=== PATIENT | female | born 1955 | race Caucasian/White ===

== ENCOUNTER 2018-07-23 12:18 | Day surgery (SDC) | payer BC ==
[~2018-07-23] VITALS: Ht 160 cm; Wt 137.0 kg
[~2018-07-23 12:18] MED LIST: CBD OIL TOP; DEXILANT60 MG PO; DICL75ER PO; DULO60; FAMO40 PO; GABA600; IBUP800; LISHYD1012; MELO7.5; META800 PO; PANT40; PREG75 PO; ROSU10TA PO; TRILYTE; ZESTORETIC 20-1 EACH PO; [UNRECOGNIZED DRUG - OTHER]
--- NOTE | 2018-07-23 12:39 | NUR ---
Ambulatory in Day SurgeryPatient states colon prep results clear. History, Chart, Medications and Allergies reviewed before start of procedure.Lungs clear T/O to Auscultation. Patient confirms NPO status and agrees with scheduled surgery. Pre-Op teaching done. Pt verbalizes understanding.
--- NOTE | 2018-07-23 14:11 | NUR ---
07/23/18 1411 Juanpablo Gasca 3-LEAD EKG REVIEWED WITH PHYSICIAN PRIOR TO START OF PROCEDURE.Patient to ENDO 1History, Chart, Medications and Allergies reviewed before start of procedure.MONITOR INTACT WITH CONTINUOUS PULSE OXIMETRY AND INTERMITTENT BP.O2 VIA N/C INTACT THROUGHOUT SEDATION/PROCEDURE. See Anesthesia record
[2018-07-23] MEDS ORDERED: DULO30 PO (14:20)
== END 2018-07-23 22:40 | disposition home or self-care (01) ==
LOC: ORSCMMR 12:18 → ORD 14:00 → ORSCMMR 22:40
PROVIDERS: Internal Medicine Gastroenterology
PROC: 0DBM8ZX Excision of Descending Colon, Via Natural or Artificial Opening Endoscopic, Diagnostic (ICD-10-PCS; principal; 2018-07-23 14:00)
PROC: 0DBP8ZX Excision of Rectum, Via Natural or Artificial Opening Endoscopic, Diagnostic (ICD-10-PCS; principal; 2018-07-23 14:00)
DX: Z80.0 Family history of malignant neoplasm of digestive organs (principal); D12.4 Benign neoplasm of descending colon; K62.1 Rectal polyp; K57.30 Diverticulosis of large intestine without perforation or abscess without bleeding; I10 Essential (primary) hypertension; G47.33 Obstructive sleep apnea (adult) (pediatric); K21.9 Gastro-esophageal reflux disease without esophagitis; E66.01 Morbid (severe) obesity due to excess calories; Z68.43 Body mass index [BMI] 50.0-59.9, adult
CPT/HCPCS: 88305; J2405; J7120

== ENCOUNTER 2023-06-27 17:44 | Inpatient (IN) | payer MEDICARE, OTHER ==
[~2023-06-27] VITALS: Ht 160 cm; Wt 131.9 kg
[~2023-06-27 17:44] MED LIST changes: +DULO30 PO
[2023-06-27 18:22] LABS: Hematocrit 30.3 % (33.0-51.0); Hemoglobin 10.1 g/dL (11.5-16.0); Mean Corpuscular HGB 29.2 pg (26.0-34.0); Mean Corpuscular HGB Conc 33.3 g/dL (31.5-36.5); Mean Corpuscular Volume 88 fL (80-100); Mean Platelet Volume 10.6 fL (9.1-12.4); Platelet Count 174 K/mm3 (150-400); RDW Coefficient Variation 17.6 % (11.7-14.2); Red Blood Cell Count 3.46 M/mm3 (3.80-5.20); White Blood Cell Count 35.87 K/mm3 (4.00-11.30)
[2023-06-27 18:45] LABS: BAND PERCENT MAN 23 % (0-8); BASOPHILS PERCENT MAN 0 % (0-2); EOSINOPHILS ABSOLUTE MAN 0.35 K/mm3 (0.00-0.68); EOSINOPHILS PERCENT MAN 1 % (0-6); LYMPHOCYTES ABSOLUTE MAN 0.35 K/mm3 (0.84-5.20); LYMPHOCYTES PERCENT MAN 1 % (21-46); MONOCYTES ABSOLUTE MAN 0.71 K/mm3 (0.16-1.47); MONOCYTES PERCENT MAN 2 % (4-13); NEUTROPHILS ABSOLUTE MAN 34.43 K/mm3 (1.96-9.15); SEG NEUTROPHILS PERCENT MAN 73 % (41-73); TOTAL CELLS COUNTED 100
[2023-06-27 18:46] LABS: Albumin, Blood 1.8 g/dL (3.4-5.0); Albumin/Globulin Ratio 0.4 (0.8-1.8); Bilirubin, Total 1.8 mg/dL (0.1-1.0); Bun/Creatinine Ratio 16.6 (12.0-20.0); Calcium, Blood 8.7 mg/dL (8.5-10.1); Creatinine, Blood 3.01 mg/dL (0.40-1.00); Globulin, Blood 4.3 g/dL (2.2-4.0); Potassium, Blood 3.4 mmol/L (3.5-5.5); Total Protein, Blood 6.1 g/dL (6.4-8.2)
[2023-06-27 19:37] LABS: Influenza A, PCR NEGATIVE (NEGATIVE); Influenza B, PCR NEGATIVE (NEGATIVE); Resp Syncytial Virus, PCR NEGATIVE (NEGATIVE); SARS-Cov-2 (COVID-19) PCR, MMC NEGATIVE (NEGATIVE)
[2023-06-27 20:39] LABS: Source, Urine Foley catheter
[2023-06-27 20:45] LABS: Appearance, Urine Cloudy (Clear); Blood, Urine 1+ (Neg); Color, Urine Amber (P-Yellow); Glucose Qualitative, Urine Neg (Neg); Ketones, Urine 1+ (Neg); Leukocyte Esterase, Urine 1+ (Neg); Nitrite, Urine Pos (Neg); Protein, Urine 2+ (Neg); Specific Gravity, Urine 1.025 (1.003-1.022); Urobilinogen, Urine 2+ (Normal)
[2023-06-27 20:51] LABS: Bilirubin, Urine 2+ (Neg)
[2023-06-27 20:53] LABS: Amorphous Mod (0-Heavy); Bacteria Mod /hpf; Squamous Epithelial Cells Not Seen /hpf (Few)
[2023-06-27 20:57] LABS: International Normalized Ratio 1.23; Prothrombin Time Results 12.8 Sec (9.7-11.5)
[2023-06-28] VITALS (95 sets, daily range): BP systolic 60–137; BP diastolic 29–101
[2023-06-28 03:53] LABS: Hematocrit 32.8 % (33.0-51.0); Hemoglobin 10.6 g/dL (11.5-16.0); Mean Corpuscular HGB 29.3 pg (26.0-34.0); Mean Corpuscular HGB Conc 32.3 g/dL (31.5-36.5); Mean Corpuscular Volume 91 fL (80-100); Mean Platelet Volume 10.6 fL (9.1-12.4); Platelet Count 142 K/mm3 (150-400); RDW Coefficient Variation 18.3 % (11.7-14.2); RDW Standard Deviation 60.7 fL (35.1-46.3); Red Blood Cell Count 3.62 M/mm3 (3.80-5.20); White Blood Cell Count 27.16 K/mm3 (4.00-11.30)
[2023-06-28 04:12] LABS: Albumin, Blood 2.2 g/dL (3.4-5.0); Albumin/Globulin Ratio 0.5 (0.8-1.8); Bilirubin, Total 2.1 mg/dL (0.1-1.0); Bun/Creatinine Ratio 19.6 (12.0-20.0); Calcium, Blood 8.8 mg/dL (8.5-10.1); Creatinine, Blood 2.55 mg/dL (0.40-1.00); Globulin, Blood 4.1 g/dL (2.2-4.0); Potassium, Blood 3.6 mmol/L (3.5-5.5); Total Protein, Blood 6.3 g/dL (6.4-8.2)
[2023-06-28 04:36] LABS: BAND PERCENT MAN 19 % (0-8); BASOPHILS PERCENT MAN 0 % (0-2); EOSINOPHILS ABSOLUTE MAN 0.27 K/mm3 (0.00-0.68); EOSINOPHILS PERCENT MAN 1 % (0-6); LYMPHOCYTES ABSOLUTE MAN 0.54 K/mm3 (0.84-5.20); LYMPHOCYTES PERCENT MAN 2 % (21-46); MONOCYTES ABSOLUTE MAN 0.27 K/mm3 (0.16-1.47); MONOCYTES PERCENT MAN 1 % (4-13); NEUTROPHILS ABSOLUTE MAN 26.07 K/mm3 (1.96-9.15); SEG NEUTROPHILS PERCENT MAN 77 % (41-73); TOTAL CELLS COUNTED 100
--- NOTE | 2023-06-28 06:17 | NUR ---
ARRIVAL TO ICU/SHIFT SUMMARY PT ARRIVED TO ICU 14 VIA ED GURNEY AND ED RN. PT A/O X 3. FORGETFUL AT TIMES AND WILL PULL AT LINES/CORDS. WILL MAKE ODD STATEMENTS "I NEED TO GO TO WORK" AND "THE CAKE IS BAKING". VSS. BP SOFT AND HR 110-120'S. ST WITH PAC'S. ON 4L VIA NC WITH SPO2 GREATER THEN 90%. PT SOB AT REST AND ESPECIALLY WHEN TALKING OR DRINKING WATER. NEEDS REMINDERS TO TAKE SMALL SIPS AND TUCK CHIN WHEN SWALLOWING. PT C/O BACK PAIN. PROVIDER CHEYENNE CALLED APPROX 2300 AND ORDER RECEIVED FOR TRAMADOL VS PT HOME MEDICATION D/T KIDNEY FUNCTION. ALSO TALKED TO PROVIDER REGARDING SOB, EDEMA, BNP AND CONCERN FOR FLUID OVERLOAD. NO NEW ORDERS. PT STATES TRAMADOL DOES NOT WORK FOR HER. CALLED AND NOTIFIED PROVIDER OF THIS. ORDER FOR PERCOCET. PROVIDER NOTIFIED OF PT ALLERGIES. PROVIDER STATED THAT IT IS OKAY AND TO ORDER IT. PT DECLINED TO TAKE IT AT THAT TIME, BUT PT DID REQUEST TO TAKE IT THIS AM. PT SLIGHTLY MORE FORGETFUL AFTER TAKING IT, BUT STILL A/O X 3. [facility] CALLED THIS AM D/T PT STILL BEING SOB, INCREASING HR, BNP, AND FLUIDS. ORDER TO D/C LR AND GIVE LASIX. VALLES PATENT AND DRAINING TO GRAVITY. WILL REPORT OFF TO ONCOMING RN.
--- NOTE | 2023-06-28 08:10 | NUR ---
INITIAL ASSESSMENT PATIENT RESTING IN BED UPON ENTERING ROOM. PATIENT RESPONDS TO VERBAL STIMULI. PATIENT ORIENTED TO SELF, TOWN AND HOSPITAL. PATIENT DISORIENTED TO YEAR AND MONTH. PATIENT LETHARGIC. PATIENT CALM, COOPERATIVE. WITHDRAWN. PATIENT SLOW TO RESPOND. BLOOD SUGAR [address] VARNER CALLED. PATIENT UNABLE TO UNDERSTAND HOW TO SIP FROM A STRAW. 12.5 G OF D50 GIVEN. PATIENT WEAK BUT ABLE TO MOVE ALL EXTREMITIES. PATIENT AFEBRILE. PATIENT HAS NO COMPLAINTS OF PAIN AT THIS TIME. PATIENT SATTING 90% AND GREATER ON 4 L NC. LUNGS CLEAR IN UPPER LOBES AND DIMINISHED IN LOWER LOBES. PATIENT APPEARS SOB WITH AND WITHOUT EXERTION. PATIENT ST WITH PACS, HR IN THE 120S. SBP 90S TO LOW 100S. 1+ EDEMA NOTED TO BUES. 2+ EDEMA NOTED TO LLE. 3+ EDEMA NOTED TO RLE. ABD MILDLY DISTENDED WITH HYPOACTIVE BOWEL SOUNDS NOTED. DATE OF LAST BM UNKNOWN. PATIENT NPO AT THIS TIME BECAUSE OF ASPIRATION RISK. VALLES DRAINING YELLOW COLORED URINE WITH SEDIMENT NOTED. R LEG REDDENED AND WARM. BED LOW, CALL LIGHT IN REACH. CARE CONTINUES.
--- NOTE | 2023-06-28 09:32 | NUR ---
DR. JARQUIN CALLED AND INFORMED THAT DR. VARNER CALLED THIS AM WHEN BLOOD SUGAR 54. INFORMED THAT PATIENT RECEIVED 12.5 MG OF D50. INFORMED THAT BLOOD SUGAR DECREASED FROM 79 TO 73. ORDERED FOR D5 TO START.
--- NOTE | 2023-06-28 09:50 | NUR ---
TOOK PATIENT'S TWO RINGS HOME THAT WERE ON HER FINGERS.
--- NOTE | 2023-06-28 11:00 | NUR ---
DR. JARQUIN HERE TO SEE PATIENT. INFORMED THAT PATIENT HAS POSITIVE BLOOD CULTURES OF GRAM + COCCI IN CHAINS. INFORMED THAT BPS SOFT. INFORMED THAT PATIENT APPEARS SOB WITH AND WITHOUT EXERTION. INFORMED THAT GENETIC PHYSICIAN STOPPED LR AT 125 AND GAVE 40 MG LASIX TO TRY AND HELP WITH BREATHING. INFORMED THAT PATIENT MINIMALLY RESPONSIVE TO VERBAL STIMULI. INFORMED THAT D5 HAD BEEN STARTED AT 50 MLS/ HOUR. INFORMED REPORT THAT PATIENT TAKES PAIN AND SPASM MEDICATIONS AT HOME FOR BACK BUT BECAUSE OF DAE PERCOCET WAS ORDERED AND ADMINISTERED AROUND 0400. RECEIVED REPORT THAT PATIENT "FEELS LOOPY" WHEN GETS CODEINE OR HYDROCODONE.
--- NOTE | 2023-06-28 12:00 | NUR ---
PATIENT AFEBRILE. PATIENT MENTATION DECREASED FROM THIS AM. PATIENT RESPONSIVE TO PAINFUL STIMULI BY MOVING EXTREMITIES AND BRIEFLY OPENING EYES. DR. JARQUIN AWARE. PATIENT TRIES TO ANSWER QUESTIONS BUT IS ONLY ABLE TO BARELY MAKE A SOUND. HR IN THE 1-TEENS. SBP 80S TO 90S. BLOOD SUGAR 69. D50 GIVEN. AND SON AT BEDSIDE. CARE CONTINUES.
--- NOTE | 2023-06-28 12:05 | NUR ---
DR. JARQUIN CALLED AND INFORMED THAT BLOOD SUGAR 69 AND THAT D50 GIVEN PER PROTOCOL. ALSO INFORMED THAT MAP IN THE 50S ON PREVIOUS BLOOD PRESSURE. ORDERED TO INCREASE D5 DRIP TO 75 MLS/ HOUR AND TO ORDER LOW DOSE LEVOPHED IF NEEDED.
--- NOTE | 2023-06-28 16:07 | NUR ---
PATIENT AFEBRILE. PATIENT RESPONSIVE TO VERBAL STIMULI. PATIENT ORIENTED TO SELF. WHEN ASKED OTHER QUESTIONS PATIENT EITHER DOES NOT RESPOND OR ONLY MAKES A SOUND. HR IN THE LOW 100S. SBP IN THE LOW 100S. BLOOD SUGAR 77. DR. JARQUIN CALLED. D10 TO BE STARTED WHEN ARRIVES FROM PHARMACY. NO COMPLAINTS OF PAIN AT THIS TIME. CARE CONTINUES.
--- NOTE | 2023-06-28 19:02 | NUR ---
SHIFT SUMMARY PATIENT REMAINED SLEEPING THIS SHIFT. PATIENT BRIEFLY WOULD WAKE TO VERBAL OR NOXIOUS STIMULI. PATIENT MOSTLY RESPONDED TO QUESTIONS BY GOING BACK TO SLEEP OR WITH ONLY SOUNDS. PATIENT REMAINED AFEBRILE. PATIENT REMAINED SATTING 90% AND GREATER ON 4 L NC. PATIENT APPEARED SOMEWHAT SOB WITH AND WITHOUT EXERTION. PATIENT REMAINED IN ST WITH PACS, HR LOW 100S TO 120S. SBP 80S TO 130S. PATIENT REMAINED EDEMATOUS. R LEG MORE EDEMATOUS THAN LEFT. NO BM THIS SHIFT. PATIENT HAS REMAINED NPO FOR ASPIRATION RISK. 975 MLS OF YELLOW COLORED URINE WITH SEDIMENT NOTED. R LOWER LEG REMAINED WARM AND RED. BACK OF RIGHT FOREARM RED AND HOT BY THE END OF SHIFT. D10 INFUSING AT 75 MLS/ HOUR FOR LOW BLOOD SUGARS TODAY. BLOOD SUGARS RANGED FROM 54 TO 94 THIS SHIFT. ECHO PERFORMED THIS SHIFT. VANCOMYCIN STARTED THIS SHIFT. PATIENT HAD COMPLETE BED BATH THIS SHIFT. PATIENT'S AND SON IN TO VISIT MOST OF THE DAY. PATIENT HAS NO SIGNS OF PAIN AT THIS TIME. BED LOW, CALL LIGHT IN REACH. REPORT GIVEN TO ASSUMING PC MAINTENANCE TECHNICIAN NURSE.
[2023-06-29] VITALS (40 sets, daily range): BP systolic 86–163; BP diastolic 53–113
--- NOTE | 2023-06-29 00:30 | NUR ---
ASSUMED CARE ASSUMED CARE AT 1900. LESS RESPONSIVE THEN PREVIOUS NIGHT. PT ALERT TO SELF, STATED ITS 2022, AND SHE IS IN [place]. UNABLE TO ANSWER OTHER ORIENTATION QUESTIONS. WILL FOLLOW SIMPLE COMMANDS AND NOD HEAD YES/NO. VSS. SOFT BP AT TIMES WITH MAP GREATER THEN 65. ST W/ PACS 100-120'S. ON 4L VIA NC. REDNESS TO RIGHT ARM MARKED. D10 AT 75ML/HR. CBG Q1-2. VALLES PATENT AND DRAINING TO GRAVITY.
[2023-06-29 03:31] LABS: Hematocrit 32.9 % (33.0-51.0); Hemoglobin 10.9 g/dL (11.5-16.0); Mean Corpuscular HGB 28.7 pg (26.0-34.0); Mean Corpuscular HGB Conc 33.1 g/dL (31.5-36.5); Mean Corpuscular Volume 87 fL (80-100); Mean Platelet Volume 11.2 fL (9.1-12.4); Platelet Count 174 K/mm3 (150-400); RDW Coefficient Variation 17.7 % (11.7-14.2); RDW Standard Deviation 56.2 fL (35.1-46.3); White Blood Cell Count 43.93 K/mm3 (4.00-11.30)
[2023-06-29 03:59] LABS: Bun/Creatinine Ratio 26.7 (12.0-20.0); Calcium, Blood 9.5 mg/dL (8.5-10.1); Creatinine, Blood 2.02 mg/dL (0.40-1.00); Potassium, Blood 3.3 mmol/L (3.5-5.5)
[2023-06-29 04:02] LABS: BAND PERCENT MAN 11 % (0-8); BASOPHILS PERCENT MAN 0 % (0-2); EOSINOPHILS PERCENT MAN 0 % (0-6); LYMPHOCYTES ABSOLUTE MAN 0.87 K/mm3 (0.84-5.20); LYMPHOCYTES PERCENT MAN 2 % (21-46); MONOCYTES ABSOLUTE MAN 1.31 K/mm3 (0.16-1.47); MONOCYTES PERCENT MAN 3 % (4-13); NEUTROPHILS ABSOLUTE MAN 41.73 K/mm3 (1.96-9.15); SEG NEUTROPHILS PERCENT MAN 84 % (41-73); TOTAL CELLS COUNTED 100
--- NOTE | 2023-06-29 06:14 | NUR ---
SHIFT SUMMARY NO ACUTE EVENTS T/O NIGHT. PT STILL LETHARGIC AND SLOW TO RESPOND. SOB AT REST AND WITH ACTIVITY. COUGH APPEARS TO MORE FREQUENT THIS SHIFT THEN LAST. VSS. BP SOFT AT TIMES BUT MAP REMAINS GREATER THEN 65. LEVOPHED NOT STARTED. D10 AT 75ML/HR. CBG 100'S. HOSP CALLED REGARDING MORNING LABS. ORDERS RECEIVED. REENA PATENT AND DRAINING TO GRAVITY. WILL REPORT OFF TO ONCOMING RN.
--- NOTE | 2023-06-29 11:43 | NUR ---
AM NOTE... ASSUMED CARE OF PT AT 0700 PT IS A&O TO SELF AND FAMILY AND ABLE TO STATE THE TOWN SHE IS CURRENTLY IN. SHE IS SLEEPING AND LETHARGIC BUT WAKES TO VERBAL WELL TOUCH STIMULI. SHE IS IN SINUS TACH IN THE 100'S WITH FREQUENT PACs AND PVCs. BP IS STABLE WITH MAPS>65. THE PT'S POSTERIOR RIGHT FA HAS A LARGE RED AREA THAT IS FIRM AND HOT TO THE TOUCH, AREA WAS MARKED WITH A SHARPIE AND NOTED OF THIS ASSESSMENT THE RED AREA HAS GROWN OUTSIDE OF THE OUTLINED AREA (PROVIDER IS AWARE.) THE PT'S RLE IS ALSO EDEMATOUS AND WARM TO THE TOUCH THE LLE IS EDEMATOUS WELL BUT NOT WARM THE RIGHT. US DVT STUDY WAS ORDERED AND DONE IN THE ROOM, WAITING ON RESULTS AT THIS TIME. PT IS ON 4L NC WHICH WAS TITRATED DOWN TO 2L NC TO KEEP O2 SATS>90%. L/S COARSE EXP WHEEZES IN THE UPPER LOBES DIM IN THE LOWER LOBES, RR IN THE 20'S AND LABORED AT TIMES WITH ACCESSORY MUSCLE USE. PT IS NPO D/T AMS ORAL CARE DONE THIS AM. BT PRESENT AND NORMOACTIVE, ABD IS SOFT AND NONTENDER TO PALPATION. TEMP VALLES IS PATENT AND DRAINING DARK YELLOW URINE WITH SEDIMENT TO GRAVITY, PT'S TEMP THIS AM WAS 98.6. THE PROVIDER WAS AT THE BEDSIDE TO SPEAK WITH THE FAMILY MULTIPLE TIMES THIS AM. WILL CONTINUE TO MONITOR.
--- NOTE | 2023-06-29 16:18 | NUR ---
GAVE SCHEDULED AFTERNOON MEDICATIONS WITH INSTRUCTOR AND CHARTED IT. PT'S FAMILY STATED SHE WAS NOW COLD AND ASKED FOR A WARM BLANKET. STUDENT LET HER NURSE KNOW BUT THAT SHE WOULDN'T BE ABLE TO COME IN FOR A BIT SHE WAS OCCUPIED.
--- NOTE | 2023-06-29 17:30 | NUR ---
SHIFT SUMMARY.... NO ACUTE NEGATIVE CHANGES NOTED THIS SHIFT. THE PT'S MENTATION HAS IMPROVED PER THE FAMILY. VS STABLE. PT'S TMAX THIS SHIFT WAS 99.9. SHE WAS MEDICATED FOR PAIN ONCE WITH GOOD RESULTS PER EMAR. THE PT'S O2 WAS TITRATED OFF TO RA FOR APROX 4HRS THIS SHIFT UNTIL SHE FELL ASLEEP AND WAS HAVING APNEIC EPISODES, 2L NC WAS PLACED ON THE PT WITH PITT IMPROVMENT OF O2 SATS >92%. WILL CONTINUE TO MONITOR UNTIL REPORT IS GIVEN TO ONCOMING RN.
[2023-06-30] VITALS (28 sets, daily range): BP systolic 88–169; BP diastolic 49–103
[2023-06-30 05:37] LABS: Hematocrit 29.2 % (33.0-51.0); Hemoglobin 9.9 g/dL (11.5-16.0); Mean Corpuscular HGB 28.3 pg (26.0-34.0); Mean Corpuscular HGB Conc 33.9 g/dL (31.5-36.5); Mean Corpuscular Volume 83 fL (80-100); Mean Platelet Volume 11.1 fL (9.1-12.4); NRBC ABSOLUTE 0.03 K/mm3 (0.00-0.02); NRBC Auto 0.1 /100 WBC (0.0-0.2); Platelet Count 182 K/mm3 (150-400); RDW Coefficient Variation 17.2 % (11.7-14.2); RDW Standard Deviation 52.3 fL (35.1-46.3); White Blood Cell Count 29.07 K/mm3 (4.00-11.30)
--- NOTE | 2023-06-30 05:51 | NUR ---
SHIFT SUMMERY PT HAS HAD NO ACUTE CHANGES OVERNIGHT. SHE HAS BEEN ST ON THE CAR SHUNTER. BP WNL. OXYGEN SAT >90% ON 2-4LNC. SHE HAS BEEN MOSTLY SOMNOLENT W/PERIODS OF RESTLESSNESS AND COMPLAINTS OF PAIN. SHE IS ORIENTED TO SELF AND PLACE ONLY. SHE CONTININUES TO HAVE REDNESS AND SWELLING ON HER RIGHT ARM AND RIGHT LEG. SHE HAS GENERALIZED WEAKNESS. TEMP VALLES INTACT PATENT AND DRAINING TO GRAVITY BELOW THE LEVEL OF THE BLADDER.
[2023-06-30 05:57] LABS: Albumin, Blood 1.6 g/dL (3.4-5.0); Albumin/Globulin Ratio 0.4 (0.8-1.8); Bilirubin, Total 1.7 mg/dL (0.1-1.0); Bun/Creatinine Ratio 40.9 (12.0-20.0); Calcium, Blood 9.5 mg/dL (8.5-10.1); Creatinine, Blood 1.15 mg/dL (0.40-1.00); Globulin, Blood 4.4 g/dL (2.2-4.0)
[2023-06-30 06:18] LABS: BAND PERCENT MAN 8 % (0-8); BASOPHILS PERCENT MAN 0 % (0-2); EOSINOPHILS ABSOLUTE MAN 0.58 K/mm3 (0.00-0.68); EOSINOPHILS PERCENT MAN 2 % (0-6); LYMPHOCYTES ABSOLUTE MAN 0.29 K/mm3 (0.84-5.20); LYMPHOCYTES PERCENT MAN 1 % (21-46); MONOCYTES ABSOLUTE MAN 0.87 K/mm3 (0.16-1.47); MONOCYTES PERCENT MAN 3 % (4-13); MYELOCYTE ABSOLUTE MAN 0.29 K/mm3 (0.00-0.00); MYELOCYTE PERCENT MAN 1 % (0-0); NEUTROPHILS ABSOLUTE MAN 27.03 K/mm3 (1.96-9.15); SEG NEUTROPHILS PERCENT MAN 85 % (41-73); TOTAL CELLS COUNTED 100
[2023-06-30 13:48] LABS: Vancomycin, Trough 9.9 ug/mL (5.0-10.0)
--- NOTE | 2023-06-30 16:50 | NUR ---
SHIFT SUMMARY NO ACUTE CHANGES THIS SHIFT. PT REMAINS SOMNOLENT WITH BREIF PERIODS OF MAINTAINING ALERTNESS. WHEN AWAKE AND ALERT, PT ONLY SPEAKS OCCASIONAL WORDS. PT IS UNABLE TO ANSWER QUESTIONS APPROPRIATELY OR FOLLOW DIRECTIONS. PT WITH PERIODS OF MOANING OUT AND RESTLESSNESS. PT MED WITH DILAUDID PER EMAR. PT SPOUSE AND SON REMAIN AT BEDSIDE THROUGHOUT THE SHIFT AND PROVIDED WITH MULTIPLE EXTENSIVE UPDATES RELATED TO PT CONDITION AND PLAN OF CARE. PG TO FRANCINE REMAINS IN PLACE WITH NS INFUSING TKO. VALLES TEMP PROBE REMAINS IN PLACE WITH LARGE AMOUNT OF EULA URINE OUTPUT NOTED. VITAL SIGNS HAVE REMAINED STABLE. REDDNESS TO RIGHT FOREARM/ ELBOW UNCHANGED. WILL CONTINUE TO MONITOR AND REPORT OFF TO ONCOMING RN.
[2023-07-01] VITALS (19 sets, daily range): BP systolic 132–165; BP diastolic 63–123
[2023-07-01 03:30] LABS: Hematocrit 29.4 % (33.0-51.0); Hemoglobin 10.2 g/dL (11.5-16.0); Mean Corpuscular HGB 28.7 pg (26.0-34.0); Mean Corpuscular HGB Conc 34.7 g/dL (31.5-36.5); Mean Corpuscular Volume 83 fL (80-100); Mean Platelet Volume 11.5 fL (9.1-12.4); NRBC ABSOLUTE 0.02 K/mm3 (0.00-0.02); NRBC Auto 0.1 /100 WBC (0.0-0.2); Platelet Count 196 K/mm3 (150-400); RDW Standard Deviation 50.8 fL (35.1-46.3); Red Blood Cell Count 3.56 M/mm3 (3.80-5.20); White Blood Cell Count 25.19 K/mm3 (4.00-11.30)
[2023-07-01 03:56] LABS: Alanine Aminotransfer (ALT/SGP 71 U/L (12-78); Albumin, Blood 1.7 g/dL (3.4-5.0); Albumin/Globulin Ratio 0.3 (0.8-1.8); Alk Phos 406 U/L (50-136); Anion Gap 9 mmol/L (6-16); Aspartate Aminotrans (AST/SGOT 94 U/L (12-37); Bilirubin, Total 2.3 mg/dL (0.1-1.0); Blood Urea Nitrogen 35 mg/dL (8-24); Bun/Creatinine Ratio 47.6 (12.0-20.0); CO2, Blood 23 mmol/L (21-32); Chloride, Blood 115 mmol/L (98-108); Creatinine, Blood 0.74 mg/dL (0.40-1.00); Globulin, Blood 4.9 g/dL (2.2-4.0); Glomerular Filtration Rate 89 (60-); Glucose, Blood 106 mg/dL (70-99); Phosphorus, Blood 3.4 mg/dL (2.5-4.9); Potassium, Blood 3.2 mmol/L (3.5-5.5); Sodium, Blood 147 mmol/L (136-145); Total Protein, Blood 6.6 g/dL (6.4-8.2); Triglycerides 235 mg/dL (30-160)
[2023-07-01 04:10] LABS: BAND PERCENT MAN 2 % (0-8); BASOPHILS PERCENT MAN 0 % (0-2); EOSINOPHILS ABSOLUTE MAN 0.25 K/mm3 (0.00-0.68); EOSINOPHILS PERCENT MAN 1 % (0-6); LYMPHOCYTES ABSOLUTE MAN 2.26 K/mm3 (0.84-5.20); LYMPHOCYTES PERCENT MAN 9 % (21-46); METAMYELOCYTE PERCENT MAN 2 % (0-0); MONOCYTES ABSOLUTE MAN 1.51 K/mm3 (0.16-1.47); MONOCYTES PERCENT MAN 6 % (4-13); MYELOCYTE ABSOLUTE MAN 0.25 K/mm3 (0.00-0.00); MYELOCYTE PERCENT MAN 1 % (0-0); SEG NEUTROPHILS PERCENT MAN 79 % (41-73); TOTAL CELLS COUNTED 100
--- NOTE | 2023-07-01 06:40 | NUR ---
SHIFT SUMMARY PT REMAINS VERY CONFUSED AND NONREDIRECTABLE T/O THE NIGHT. OPENS EYES TO BOTH VERBAL AND TACTILE STIMULI, BUT DOES NOT RESPOND TO QUESTIONS OR DIRECTIONS FROM STAFF. THROUGHOUT THE NIGHT PT HAS INTERMITTENTLY GROANED/YELLED OUT IN PAIN. DR. CHAUDHARY NOTIFIED OF THIS DURING THE NIGHT WITH ADDITIONAL PAIN MEDS GIVEN PER EMAR. THESE MEDS ONLY BRIEFLY RELEIVED PT'S PAIN BEFORE SHORTLY RETURNING TO GROANING AND MOANING. CARDIAC, REMAINS IN SR-ST 80-110'S. SBP HAS BEEN STABLE RANGING 110-150'S DURING THE NIGHT. RESPIRATORY, MAINTAINS SPO2 >90% ON RA WITH NO SIGNS OF SOB OR DYSPNEA. WOULD SOMETIMES REQUIRE 2L VIA NC SHORTLY AFTER PAIN MEDS AND OR WHEN ASLEEP. GI/, FOELY CATH REMAINS PATENT DRAINING YELLOW URINE TO GRAVITY. NO BM THIS SHIFT. REDNESS AROUND RUE SEEMS REDUCED FROM PREVIOUS SHIFT, NEW OUTLINE DRAWN AND DATED. POTASSIUM THIS AM WAS LOW, DR. CHAUDHARY NOTIFIED AND REPLACEMENT GIVEN PER EMAR. WAS VERY RESTLESS T/O THE NIGHT WITH PT ATTEMPTING TO PULL AT LINES, CORDS, AND WOULD FREQUENTLY RIP OFF HER TELE LEADS. PT AT ONE POINT RIPPED HER POWERGLIDE LINE IN HALF. DR. CHAUDHARY NOTIFIED OF THIS WITH ORDERS FOR SOFT WRIST RESTRAINTS ORDERD. FREQUENTLY REPOSITIONED TO KEEP PRESSURE OFF OF BONY PROMIENCES.
--- NOTE | 2023-07-01 07:00 | NUR ---
ASSUMPTION OF CARE PT MOANING OUTLOUD BUT DOES NOT SPEAK WORDS. SHE OPENS EYES SPONTANEOUSLY AND TO VERBAL STIMULI BUT DOES NOT TRACK MOVEMENTS OR FOLLOW ANY COMMANDS. SHE IS ON RA WITH SPO2 >95%. SINUS RHYTHM ON MONITOR WITH RATE BETWEEN 90S-110. BP STABLE. HOSPITALIST AT BEDSIDE. PLAN FOR IMAGING. AT BEDSIDE.
--- NOTE | 2023-07-01 09:30 | NUR ---
IMAGING PT TAKEN TO CT AT 929, RETURNED TO DEPARTMENT AT THIS TIME. VSS.
[2023-07-01 16:15] LABS: HEPATITIS B SURFACE ANTIBODY <3.10 IU/L
[2023-07-01 16:37] LABS: HEPATITIS B SURFACE ANTIGEN Negative (Negative)
[2023-07-01 16:58] LABS: HBV CORE ANTIBODIES,TOTAL Negative (Negative); HEPATITIS A ANTIBODIES, TOTAL Negative (Negative)
--- NOTE | 2023-07-01 18:00 | NUR ---
UPDATE PT'S SPOUSE CALLED FOR UPDATE. HE REPORTS PT HAS STOPPED MEDICATIONS BEFORE, SUCH WHEN SHE HAD HER KNEE SURGERY AND HAD NO SIDE EFFECTS OR CHANGES IN MENTATION.
--- NOTE | 2023-07-01 18:40 | NUR ---
SHIFT SUMMARY PT'S MENTATION UNCHANGED THROUGHOUT THE DAY. SHE CONTINUES TO OPEN EYES TO VERBAL STIMULI BUT IS UNABLE TO TRACK MOVEMENTS OR FOLLOW ANY COMMANDS. SHE CONTINUOUSLY MOANS DESPITE REPOSITIONING AND MEDICATIONS. SHE MAKES MOVEMENTS WITH UPPER EXTREMITIES AND PULLS CORDS/LINES AND IS NOT REDIRECTABLE. PT TAKEN TO CT THIS AM. ATTEMPTED DOBHOFF WITHOUT SUCCESS. PT NOW RECEIVING CLINIMIX. VALLES PATENT AND DRAINING EULA URINE TO GRAVITY. VSS THROUGHOUT THE DAY. AND SON AT BEDSIDE TODAY AND UPDATED.
--- NOTE | 2023-07-01 21:16 | NUR ---
ASSUMED CARE AT 1900 PT IS CONTINOUSLY MOANING OUT REGARDLESS OF INTERVETIONS (PAIN MEDS GIVEN, REPOSITIONING, DISTRACTION, REORIENTING, REASSURING) AND HAS NOT BEEN VERBAL; SHE DID NOT FOLLOW DIRECTIONS AND ONLY HELD EYE CONTACT FOR 3 SEC BEFORE LOOKING AWAY; SHE IS MOVING ALL EXTREMITIES AND WILL PULL AT LINES AND CORDS; SHE DID NOT ANSWER ORIENTATION QUESTIONS AND DID NOT ANSWER Y/N QUESTIONS; PT [id number] IN FOR A SHORT PERIOD OF TIME AND THIS DID NOT CHANGE PT MOANING OUT; CPOT 6. PERRLA NOTED, GAG AND COUGH PRESENT AND STRONG. SPO2 >96% ON RA; CLEARING SECREATIONS AND SALIVA; BITES DOWN DURING ORAL CARE. AFEBRILE. HR 100-110; SBP 140'S. NPO RIGHT NOW D/T ASPIRATION RISK; CLINIMIX INFUSING AT 100ML/HR. VALLES IN PLACE AND DRAINING TO GRAVITY. THE RED OUTLINED AREA TO RT ARM SHOWS IMPROVEMENT WITH LITTLE REDNESS; HER RT LEG SHOW SMALL AMOUNT OF REDNESS BUT IMPROVED. POWERGLIDE TO RUE IN PLACE AND PATENT. SEE SHIFT ASSESSMENT FOR FULL ASSESSMENT.
[2023-07-01 23:34] LABS: FACTIN SMOOTH MUSCLE,IGG ELISA 18 Units (0-19)
[2023-07-02] VITALS (23 sets, daily range): BP systolic 126–177; BP diastolic 65–120
[2023-07-02 00:19] LABS: ANTI-NUCLEAR AB ANA,IGG ELISA Detected (None Detected)
[2023-07-02 03:48] LABS: Hematocrit 29.6 % (33.0-51.0); Hemoglobin 10.2 g/dL (11.5-16.0); Mean Corpuscular HGB 28.6 pg (26.0-34.0); Mean Corpuscular HGB Conc 34.5 g/dL (31.5-36.5); Mean Corpuscular Volume 83 fL (80-100); Mean Platelet Volume 11.3 fL (9.1-12.4); NRBC ABSOLUTE 0.08 K/mm3 (0.00-0.02); NRBC Auto 0.3 /100 WBC (0.0-0.2); Platelet Count 212 K/mm3 (150-400); RDW Coefficient Variation 16.7 % (11.7-14.2); RDW Standard Deviation 49.6 fL (35.1-46.3); Red Blood Cell Count 3.57 M/mm3 (3.80-5.20); White Blood Cell Count 27.84 K/mm3 (4.00-11.30)
[2023-07-02 04:06] LABS: Albumin, Blood 1.9 g/dL (3.4-5.0); Albumin/Globulin Ratio 0.4 (0.8-1.8); Bilirubin, Total 1.3 mg/dL (0.1-1.0); Bun/Creatinine Ratio 59.8 (12.0-20.0); Calcium, Blood 9.1 mg/dL (8.5-10.1); Creatinine, Blood 0.62 mg/dL (0.40-1.00); Globulin, Blood 5.2 g/dL (2.2-4.0); Magnesium, Blood 2.2 mg/dL (1.6-2.4); Phosphorus, Blood 2.4 mg/dL (2.5-4.9); Potassium, Blood 3.5 mmol/L (3.5-5.5); Total Protein, Blood 7.1 g/dL (6.4-8.2)
[2023-07-02 04:20] LABS: BAND PERCENT MAN 3 % (0-8); BASOPHILS ABSOLUTE MAN 0.27 K/mm3 (0.00-0.23); BASOPHILS PERCENT MAN 1 % (0-2); EOSINOPHILS PERCENT MAN 0 % (0-6); LYMPHOCYTES ABSOLUTE MAN 1.67 K/mm3 (0.84-5.20); LYMPHOCYTES PERCENT MAN 6 % (21-46); METAMYELOCYTE ABSOLUTE MAN 0.83 K/mm3 (0.00-0.00); METAMYELOCYTE PERCENT MAN 3 % (0-0); MONOCYTES ABSOLUTE MAN 3.06 K/mm3 (0.16-1.47); MONOCYTES PERCENT MAN 11 % (4-13); MYELOCYTE ABSOLUTE MAN 0.55 K/mm3 (0.00-0.00); MYELOCYTE PERCENT MAN 2 % (0-0); NEUTROPHILS ABSOLUTE MAN 21.43 K/mm3 (1.96-9.15); SEG NEUTROPHILS PERCENT MAN 74 % (41-73); TOTAL CELLS COUNTED 100
--- NOTE | 2023-07-02 06:23 | NUR ---
END OF SHIFT SUMMARY PT DID NOT SLEEP AND ONLY MOANED T/O THE NIGHT. SHE WAS NOT CONSOLABLE EVEN AFTER MEDICATION, REPOSITIONING, REASSURANCE, AND REDIRECTIONS; SHE DID NOT FOLLOW DIRECTIONS AND WAS NOT ABLE TO REPLICATE MOVEMENTS WHEN ASKED; CONT TO MAKE EYE CONTACT FOR A FEW SEC AND THEN LOOKS AWAY; MOVES ALL EXTREMITIES; CPOT 6 ALL NIGHT. MAX TEMP 100.7; CALL MADE TO DR CHAUDHARY WHO PROVIDED ORDERS FOR TORADOL. SPO2 >96% ON RA; ORAL CARE DONE Q2HR D/T MOANING OUT AND HAVING MOUTH OPEN ALL NIGHT; HAS COUGH AND GAG; ONE EPISODE OF COUGHING RESULTING IN A LARGE SOFT CAST THAT SHE SPIT OUT; SHE CLAMPS DOWN DURING ORAL CARE AND A BITE BLOCK WAS NEEDED EVERY TIME. HR 100-110; SBP 140-170'S; HR DID NOT CHANGE WITH PAIN MEDS, SBP WOULD DECREASE SLIGHTLY AFTER PAIN MEDS. NO BM TONIGHT. VALLES IN PLACE AND DRAINING TO GRAVITY. RT ARM AND RT LEG CONT TO SHOW IMPROVEMENT REGARDING REDNESS. PT PICKS AT LEADS AND IV'S, PT PULLED LT AC PIV OUT WHEN NOT RESTRAINED; POWERGLIDE TO RUE PATENT. CLINIMIX INFUSING AT 100ML/HR. WILL REPORT TO AM RN WHEN AVAILABLE.
--- NOTE | 2023-07-02 07:00 | NUR ---
ASSUMPTION OF CARE BEDSIDE REPORT RECEIVED FROM ANGELLA WITH PT'S AT BEDSIDE. PT ATTEMPTS TO TURN HEAD TO VERBAL STIMULI BUT IS UNABLE TO TRACK MOVEMENTS OR FOLLOW ANY COMMANDS. SHE CONTINUES TO MOAN, SHE DOES NOT SAY ANY WORDS. SHE REMAINS NPO AND IS RECEIVING CLINIMIX. SINUS RHYTHM ON MONITOR WITH RATE 90S-110. BP STABLE WITH MAP >65. VALLES PATENT AND DRAINING TO GRAVITY. [facility] PROVIDERS AT BEDSIDE.
[2023-07-02 11:23] LABS: International Normalized Ratio 1.14; Prothrombin Time Results 11.9 Sec (9.7-11.5)
[2023-07-02 12:24] LABS: HEPATITIS C AB CIA INTERP Negative (Negative); HEPATITIS C ANTIBODY CIA INDEX 0.07 IV
--- NOTE | 2023-07-02 16:36 | NUR ---
UPDATE/DOBHOFF PT TAKEN TO RADIOLOGY FOR LP THIS AFTERNOON. ACCOMPANIED PT TO SIGN CONSENT. DOBHOFF PLACED AFTER PROCEDURE. DOBHOFF IS 65CM, VERIFIED PLACEMENT BY XRAY AND [facility] PROVIDER.
--- NOTE | 2023-07-02 18:21 | NUR ---
SHIFT SUMMARY PT'S MENTATION REMAINS UNCHANGED. SHE OCCASIONALLY LOOKS TOWARD VERBAL STIMULI BUT IS UNABLE TO TRACK MOVEMENTS OR FOLLOW ANY COMMANDS. SHE MOANS BUT DOES NOT SAY ANY WORDS. COUGH/GAG INTACT. SHE IS ON 2L NC. ETCO2 34 PER NC. SINUS ON MONITOR, BP STABLE. DOBHOFF PLACED THIS AFTERNOON AT 65CM. JEVITY 1.2 TUBE FEEDING STARTED AT GOAL RATE. VALLES PATENT AND DRAINING TO GRAVITY. AND SON AT BEDSIDE AFTER LP ATTEMPT AND UPDATED.
--- NOTE | 2023-07-02 22:00 | NUR ---
ASSUMED CARE AT 1900 PT STARTED CONTINUOUSLY MOANING AGAIN IMMEDIATELY AFTER SHIFT CHANGE; SHE IS KEEPING EYE CONTACT FOR A FEW SEC BUT THEN LOOKS AWAY; SHE APPEARS TIRED, RESTLESS AND "WORE OUT"; NOT FOLLOWING DIRECTIONS AND WHEN TAKEN OUT OF RESTRAINTS SHE GRABBED THE DOBHOFF BUT DID NOT PULL IT OUT; SHE CONT TO NOT MAKE WORDS AND DOES NOT ANSWER Y/N QUESTIONS. PRN PAIN MEDS AND SCHEDULED MEDS GIVEN VIA DOBHOFF AND ABOUT AN HOUR LATER SHE WAS TAKING ABOUT 10 MIN NAPS BEFORE SHE WOULD START TO MOAN AGAIN; THE FREQUENCY OF THE MOANING IS LESS. SPO2 >95% ON 2L NC, etCO2 MONITORING IN PLACE RANGING FROM 31-35. AFEBRILE. HR 100-110 WHEN AWAKE AND MOANING; DURING NAPS HR DECREASES TO 70'S. SBP 130-150'S. JEVITY 1.2 INFUSING VIA DOBHOFF AT 30ML/HR (GOAL) WITH 30ML FLUSHES Q4HR; NO BM SINCE ADMISSION, PRN CONSTIPATION MEDS GIVEN. VALLES IN PLACE AND DRAINING TO GRAVITY. SHE IS MORE FLUSHED, HOT, AND DIAPHORETIC, BLANKETS REMOVED AND FAN PLACED; REDNESS TO RUE AND RLE ARE IMPROVING. POWERGLIDE TO RUE PATENT WITH DRESSING C/D/I. SEE SHIFT ASSESSMENT FOR FULL ASSESSMENT.
[2023-07-02 23:07] LABS: ALPHA-2-MACROGLOBUL,FIBROMETER 150 mg/dL (131-293); ALT,FIBROMETER 55 U/L (5-40); AST,FIBROMETER 72 U/L (9-40); CIRRHOMETER PATIENT SCORE 0.02; FIBROMETER INTERPRETATION See Report; FIBROMETER PATIENT SCORE 0.51; FIBROMETER PLATELET COUNT 193 k/uL; FIBROMETER PROTHROMBIN INDEX 72 % (90-120); FIBROSIS METAVIR CLASSIFICAT F2[F1-F2]; GGT,FIBROMETER 37 U/L (7-33); INFLAMETER METAVIR CLASSIFICAT A1/A2; INFLAMETER PATIENT SCORE 0.45; UREA NITROGEN,SERUM,FIBROMETER 40 mg/dL (7-20)
[2023-07-03] VITALS (24 sets, daily range): BP systolic 147–178; BP diastolic 68–139
[2023-07-03 03:41] LABS: Hematocrit 32.3 % (33.0-51.0); Hemoglobin 10.6 g/dL (11.5-16.0); Mean Corpuscular HGB 28.6 pg (26.0-34.0); Mean Corpuscular HGB Conc 32.8 g/dL (31.5-36.5); Mean Corpuscular Volume 87 fL (80-100); Mean Platelet Volume 12.3 fL (9.1-12.4); NRBC ABSOLUTE 0.09 K/mm3 (0.00-0.02); NRBC Auto 0.4 /100 WBC (0.0-0.2); Platelet Count 223 K/mm3 (150-400); RDW Coefficient Variation 17.3 % (11.7-14.2); RDW Standard Deviation 54.2 fL (35.1-46.3); Red Blood Cell Count 3.71 M/mm3 (3.80-5.20); White Blood Cell Count 24.66 K/mm3 (4.00-11.30)
--- NOTE | 2023-07-03 03:53 | NUR ---
UPDATE AFTER REPOSITIONING, PT STARTED TO SLOWLY LEAN TOWARDS THE LT, HER LEFT HAND WAS THEN ABLE TO REACH UP AND GRAB THE TUBING OF THE DOBHOFF. SHE SUCCESSFULLY PULLED HER DOBHOFF OUT UNTIL THE WEIGHTED PIECE WAS SITTING IN HER NOSTRAL. TUBE FEED STOPPED WHEN THIS WAS FOUND AND THE REST OF THE DOBHOFF REMOVED. A NEW DOBHOFF WAS PLACED AT 65CM. CHEST XRAY OBTAINED AND READ BY DR CHAUDHARY. HE APPROVED TO RESTART TUBE FEEDS.
[2023-07-03 03:59] LABS: Albumin, Blood 2.1 g/dL (3.4-5.0); Albumin/Globulin Ratio 0.4 (0.8-1.8); Bilirubin, Total 0.8 mg/dL (0.1-1.0); Bun/Creatinine Ratio 69.7 (12.0-20.0); Calcium, Blood 8.9 mg/dL (8.5-10.1); Creatinine, Blood 0.67 mg/dL (0.40-1.00); Globulin, Blood 5.3 g/dL (2.2-4.0); Magnesium, Blood 2.3 mg/dL (1.6-2.4); Phosphorus, Blood 3.3 mg/dL (2.5-4.9); Potassium, Blood 3.9 mmol/L (3.5-5.5); Total Protein, Blood 7.4 g/dL (6.4-8.2)
[2023-07-03 04:17] LABS: ANA PATTERN Homogeneous; ANTINUCLEAR AB (ANA),HEP-2,IGG Detected (<1:80)
[2023-07-03 04:36] LABS: BAND PERCENT MAN 6 % (0-8); BASOPHILS PERCENT MAN 0 % (0-2); BLASTS PERCENT MAN 1 % (0-0); EOSINOPHILS PERCENT MAN 0 % (0-6); LYMPHOCYTES ABSOLUTE MAN 0.73 K/mm3 (0.84-5.20); LYMPHOCYTES PERCENT MAN 3 % (21-46); MONOCYTES ABSOLUTE MAN 0.73 K/mm3 (0.16-1.47); MONOCYTES PERCENT MAN 3 % (4-13); MYELOCYTE ABSOLUTE MAN 0.24 K/mm3 (0.00-0.00); MYELOCYTE PERCENT MAN 1 % (0-0); NEUTROPHILS ABSOLUTE MAN 22.68 K/mm3 (1.96-9.15); SEG NEUTROPHILS PERCENT MAN 86 % (41-73); TOTAL CELLS COUNTED 100
--- NOTE | 2023-07-03 07:16 | NUR ---
END OF SHIFT SUMMARY PT'S MOANING IMPROVED T/O THE NIGHT BUT MENTATION CONT TO BE THE SAME; SHE DOES NOT FOLLOW DIRECTIONS OR ANSWER Y/N QUESTIONS; SHE IS STARTING TO MAKE LONGER EYE CONTACT WITH THIS RN AND IT LOOKS LIKE SHE IS WATCHING TV. SPO2 >95% ON RA. AFEBRILE. HR 70-100'S. SBP 130-160'S. TUBE FEED INFUSING AT GOAL; NO BM THIS SHIFT. VALLES IN PLACE AND DRAINING TO GRAVITY. NO CHANGES TO RED AREAS ON RUE OR RLE. REPORT GIVEN TO AM RN EULA.
[2023-07-03 13:20] LABS: DOUBLE-STRANDED DNA IGG ELISA 4 IU (0-24)
--- NOTE | 2023-07-03 17:44 | NUR ---
DAY SHIFT SUMMARY PT STARTED SHIFT NON-VERBAL AND NOT FOLLOWING COMMANDS, THROUGHOUT THE DAY HER MENTATION HAS CONTINUED TO IMPROVE. PT IS FOLLOWING COMMANDS CONSISTENTLY, NODDING APPROPRIATELY TO YES/NO QUESTIONS, VERBALIZING AND MAKING NEEDS KNOWN. SR-ST, BP WNL FOR PT. REMAINS ON ROOM AIR, 02 SAT >94%, LUNGS CLEAR/DIM BASES. DOBHOFF IN PLACE, TF INFUSING AT 40 ML/HR (GOAL), FREE H20 FLUSHES INCREASED TO 200ML/4 HOURS TO ASSIST IN DECREASING NA+ LEVEL. PT ALSO REQUESTING WATER, CALL PLACED TO , ROD TO DRINK WATER IF TOLERATING AND SWALLOWING WELL. FORMAL ST EVAL FOR AM. MD WOULD LIKE TO CONTINUE DOBHOFF OVERNIGHT. VALLES IN PLACE, DRAINING YELLOW URINE WITH SEDIMENT. SKIN INTACT, REDNESS ON RIGHT FOREARM IMPROVING, 2 BANDAIDS TO LOWER BACK WHERE LP ATTEMPTED. SCATTERED BRUISING TO LEFT ARM. CHG BATH COMPLETED, BEDDING CHANGED. PG TO RIGHT UPPER ARM, PIV TO LEFT HAND. BOTH SL AFTER MEDS INFUSED THIS AM. BOTH FLUSH WELL. PG DOES NOT WITHDRAW BLOOD. BILAT WRIST RESTRAINTS IN PLACE, PT TOLERATING WELL. , SON AND DAUGHTER IN [place] ALL TO BEDSIDE TO VISIT, ALL UPDATED ON POC AND QUESTIONS ANSWERED. ANTICIPATE PT STATUS CHANGE TOMORROW IF CONTINUES TO IMPROVE. POC ONGOING.
--- NOTE | 2023-07-03 19:36 | NUR ---
ASSUMED CARE OF PT AT 1900 PT RESTING IN BED WITH SON AND SPOUSE AT BEDSIDE DURING BEDSIDE SHIFT REPORT. TUBE FEED RUNNING AT GOAL. VITALS WNL FOR PT AT THIS TIME. SEE FULL ASSESSMENT FOR FURTHER INFORMATION.
[2023-07-03 23:27] LABS: JO-1 HISTIDYL-TRNA SYNTHET,IGG 1 AU/mL (0-40); SCLERODERMA (SCL-70) AB,IGG 1 AU/mL (0-40); SMITH (ENA) ANTIBODY, IGG 1 AU/mL (0-40); SSA-52 (RO52) (ENA) AB, IGG 2 AU/mL (0-40); SSA-60 (RO60) (ENA) AB, IGG 0 AU/mL (0-40); SSB (LA) (ENA) ANTIBODY, IGG 0 AU/mL (0-40)
[2023-07-04] VITALS (13 sets, daily range): BP systolic 116–176; BP diastolic 66–108
[2023-07-04 03:21] LABS: Hematocrit 32.9 % (33.0-51.0); Mean Corpuscular HGB 29.3 pg (26.0-34.0); Mean Corpuscular HGB Conc 33.4 g/dL (31.5-36.5); Mean Corpuscular Volume 88 fL (80-100); NRBC ABSOLUTE 0.12 K/mm3 (0.00-0.02); NRBC Auto 0.5 /100 WBC (0.0-0.2); Platelet Count 256 K/mm3 (150-400); RDW Coefficient Variation 18.2 % (11.7-14.2); RDW Standard Deviation 54.8 fL (35.1-46.3); Red Blood Cell Count 3.75 M/mm3 (3.80-5.20); White Blood Cell Count 26.41 K/mm3 (4.00-11.30)
[2023-07-04 03:39] LABS: Albumin, Blood 2.1 g/dL (3.4-5.0); Albumin/Globulin Ratio 0.4 (0.8-1.8); Bilirubin, Total 0.5 mg/dL (0.1-1.0); Bun/Creatinine Ratio 72.5 (12.0-20.0); C-REACTIVE PROTEIN, EXT RANGE 3.21 mg/dL (0.000-0.300); Calcium, Blood 8.8 mg/dL (8.5-10.1); Creatinine, Blood 0.73 mg/dL (0.40-1.00); Globulin, Blood 4.9 g/dL (2.2-4.0); Magnesium, Blood 2.3 mg/dL (1.6-2.4); Phosphorus, Blood 3.7 mg/dL (2.5-4.9); Potassium, Blood 4.2 mmol/L (3.5-5.5)
[2023-07-04 04:04] LABS: BAND PERCENT MAN 4 % (0-8); BASOPHILS PERCENT MAN 0 % (0-2); EOSINOPHILS PERCENT MAN 0 % (0-6); LYMPHOCYTES ABSOLUTE MAN 2.64 K/mm3 (0.84-5.20); LYMPHOCYTES PERCENT MAN 10 % (21-46); METAMYELOCYTE ABSOLUTE MAN 0.26 K/mm3 (0.00-0.00); METAMYELOCYTE PERCENT MAN 1 % (0-0); MONOCYTES ABSOLUTE MAN 1.05 K/mm3 (0.16-1.47); MONOCYTES PERCENT MAN 4 % (4-13); NEUTROPHILS ABSOLUTE MAN 22.44 K/mm3 (1.96-9.15); SEG NEUTROPHILS PERCENT MAN 81 % (41-73); TOTAL CELLS COUNTED 100
--- NOTE | 2023-07-04 05:15 | NUR ---
END OF SHIFT SUMMARY PT IS NOW A/O X4. PT ABLE TO TALK IN FULL SENTENCES COHERENTLY. [facility] AND WH[facility] SHE IS HERE. KNOWS THE YEAR IS 2023. PT REMEMBER SPOUSE PHONE NUMBER BY [employer] AND IS CURRENTLY TALKING TO SPOUSE ON THE PHONE. RESTRAINTS DC'D 0400 WITH NO ATTEMPTS TO PULL AT LINES. USES CALL LIGHT APPROPRIATELY. VALLES CATHETER TAKEN OUT THIS AM PER PT REQUEST. USES BED DOYLE FOR BATHROOM NEEDS AT THIS TIME. PT BECOMES HYPERTENSIVE WITH EXERTION OTHERWISE WNL FOR PT. RA THIS SHIFT WITH SPO2 >95% SALINE LOCKED TF RUNNING AT GOAL RATE 40MLS/HR WITH 200 MLS FREE WATER Q4H. CONTINUING TO MONITOR UNTIL REPORT GIVEN TO AM RN.
[2023-07-04 07:21] LABS: SMITH/RNP (ENA) AB, IGG 5 Units (0-19)
--- NOTE | 2023-07-04 08:33 | NUR ---
AM NOTE... ASSUMED CARE OF PT AT 0700, PT IS A&Ox4 AT THIS TIME. SHE IS IN SR IN THE 70'S BP IS HYPERTENSIVE WITH SBPs IN THE 160'S-180'S. PT DENIES CHEST PAIN. TRACE DEPENDENT EDEMA NOTED TO HER BLE/HIPS. SHE IS ON RA WITH O2 SATS>95% L/S CLEAR T/O DIM IN THE BASES. BT PRESENT AND HYPERACTIVE, DOBHOFF PATENT AND RUNNING TUBE FEED PER ORDERS. PT IS HAVING LOOSE BROWN STOOLS. WILL CONTINUE TO MONITOR.
--- NOTE | 2023-07-04 17:55 | NUR ---
SHIFT SUMMARY.... NO ACUTE NEGATIVE CHANGES NOTED THIS SHIFT. THE PT'S VSS. A RECTAL TUBE WAS PLACED D/T PT HAVING LIQUID BROWN STOOLS, A PURWICK WAS ALSO PLACED THIS SHIFT. THE PT WAS SEEN BY SPEECH AND GIVEN A PUREE DIET WITH MEDS CRUSHED IN APPLE SAUCE. PT HAS NOT EATEN MORE THAN A FEW BITES THIS SHIFT. TUBE FEEDS WERE STOPPED PER ORDERS, CLINIMIX WAS STARTED PER ORDERS. CALL LIGHT IN REACH WILL CONTINUE TO MONITOR UNTIL REPORT IS GIVEN TO ONCOMING RN.
--- NOTE | 2023-07-04 18:41 | NUR ---
PT TRANSFER.... REPORT GIVEN TO HERMINIA CARRIZALES IN PCU. ALL OF PT'S BELONGINGS PACKED AND SENT WITH THE PT. PT'S FAMILY UPDATED ON THE PT'S MOVE AND NEW ROOM NUMBER.
[2023-07-05 03:10] VITALS: BP 146/61
[2023-07-05 04:32] LABS: Hematocrit 32.6 % (33.0-51.0); Hemoglobin 10.7 g/dL (11.5-16.0); Mean Corpuscular HGB 28.8 pg (26.0-34.0); Mean Corpuscular HGB Conc 32.8 g/dL (31.5-36.5); Mean Corpuscular Volume 88 fL (80-100); Mean Platelet Volume 11.2 fL (9.1-12.4); NRBC ABSOLUTE 0.15 K/mm3 (0.00-0.02); NRBC Auto 0.6 /100 WBC (0.0-0.2); Platelet Count 300 K/mm3 (150-400); RDW Coefficient Variation 18.3 % (11.7-14.2); RDW Standard Deviation 54.4 fL (35.1-46.3); Red Blood Cell Count 3.71 M/mm3 (3.80-5.20); White Blood Cell Count 24.96 K/mm3 (4.00-11.30)
[2023-07-05 04:54] LABS: Albumin/Globulin Ratio 0.5 (0.8-1.8); Bilirubin, Total 0.5 mg/dL (0.1-1.0); Bun/Creatinine Ratio 69.4 (12.0-20.0); Calcium, Blood 8.6 mg/dL (8.5-10.1); Creatinine, Blood 0.59 mg/dL (0.40-1.00); Globulin, Blood 4.4 g/dL (2.2-4.0); Potassium, Blood 4.1 mmol/L (3.5-5.5); Total Protein, Blood 6.4 g/dL (6.4-8.2)
--- NOTE | 2023-07-05 06:31 | NUR ---
SHIFT SUMMARY PT IS ALERT AND ORIENTED X 4, COOPERATIVE WITH CARE AND ABLE TO MAKE NEEDS KNOWN. LINA. SHE CAN BE CONFUSED AT TIMES AND IS WEAK. SHE HAS BEEN ON RA ALL SHIFT AND MAINTAINED 02 SATURATION ABOVE 92% AND HAS DENIED SOB. HER HR HAS BEEN IN THE 80'S AND SHE HAS DENIED CHEST PAIN/PRESSURE ALL SHIFT. BP HAS BEEN ELEVATED AND IS AWARE. JAMES IS IN PLACE. POWERGLIDE TO R UPPER ARM DOES NOT DRAW BLOOD BUT IS PATENT AND FLUSHED. CLINIMIX IS RUNNING PER EMAR. BLISTER TO R INNER THIGH, MEPILEX IN PLACE AND IT IS C/D/I. PUREWICK IN PLACE AND DRAINING YELLOW URINE. RECTAL TUBE IN PLACE DRAINING BROWN LOOSE STOOL WITH. PT CURRENTLY SPEAKING ON THE PHONE AND RESTING IN BED, CALL LIGHT WITHIN REACH. GRAVITY.
[2023-07-05 06:36] LABS: BASOPHILS PERCENT MAN 0 % (0-2); EOSINOPHILS ABSOLUTE MAN 0.74 K/mm3 (0.00-0.68); EOSINOPHILS PERCENT MAN 3 % (0-6); LYMPHOCYTES ABSOLUTE MAN 3.24 K/mm3 (0.84-5.20); LYMPHOCYTES PERCENT MAN 13 % (21-46); MONOCYTES ABSOLUTE MAN 1.24 K/mm3 (0.16-1.47); MONOCYTES PERCENT MAN 5 % (4-13); NEUTROPHILS ABSOLUTE MAN 19.71 K/mm3 (1.96-9.15); SEG NEUTROPHILS PERCENT MAN 79 % (41-73); TOTAL CELLS COUNTED 100
[2023-07-05 08:13] VITALS: BP 125/57
--- NOTE | 2023-07-05 10:01 | NUR ---
AM NOTE this rn assumed care at 0700. vital signs stable. patient on tele at sr 80s when this rn assumed care, but when md pelletier in to see patient changed to medical status no tele. tele has been removed. md discussed plan of care with patient and patient family. patint is alert and oriented x4. perrla. patient is able to make needs known and uses call light appropriately. patient reports no chest pain/pressure, shortness of breath or pain. NG tube removed this am per md orders. patient tolerating PO medications and puree diet. clinimax is infusing at 75mls/hr. see shift assessment for further detials. plan of care is up to date at this time.
[2023-07-05 15:44] VITALS: BP 109/52
--- NOTE | 2023-07-05 17:03 | NUR ---
shift summary patient neuro remains intact. vital signs stable. plan of care remains up to date. no acute changes this shift. family has been at bedside majority of the day. patient did sit at the edge of the bed and dangled for awhile today.
[2023-07-05 19:38] VITALS: BP 102/50
[2023-07-06 03:08] VITALS: BP 133/56
[2023-07-06 04:40] LABS: BASOPHILS ABSOLUTE AUTO 0.07 K/mm3 (0.00-0.23); BASOPHILS PERCENT AUTO 0 % (0-2); EOSINOPHILS ABSOLUTE AUTO 0.27 K/mm3 (0.00-0.68); EOSINOPHILS PERCENT AUTO 1 % (0-6); Hematocrit 34.3 % (33.0-51.0); IMMATURE GRAN ABSOLUTE AUTO 0.85 K/mm3 (0.00-0.10); IMMATURE GRAN PERCENT AUTO 4 % (0-1); LYMPHOCYTES ABSOLUTE AUTO 3.21 K/mm3 (0.84-5.20); LYMPHOCYTES PERCENT AUTO 13 % (21-46); MONOCYTES ABSOLUTE AUTO 1.39 K/mm3 (0.16-1.47); MONOCYTES PERCENT AUTO 6 % (4-13); Mean Corpuscular HGB 29.1 pg (26.0-34.0); Mean Corpuscular HGB Conc 32.1 g/dL (31.5-36.5); Mean Corpuscular Volume 91 fL (80-100); NEUTROPHILS PERCENT AUTO 76 % (41-73); NRBC ABSOLUTE 0.08 K/mm3 (0.00-0.02); NRBC Auto 0.3 /100 WBC (0.0-0.2); Platelet Count 324 K/mm3 (150-400); RDW Coefficient Variation 18.6 % (11.7-14.2); Red Blood Cell Count 3.78 M/mm3 (3.80-5.20); White Blood Cell Count 24.09 K/mm3 (4.00-11.30)
[2023-07-06 05:01] LABS: Albumin, Blood 1.9 g/dL (3.4-5.0); Albumin/Globulin Ratio 0.4 (0.8-1.8); Bilirubin, Total 0.6 mg/dL (0.1-1.0); Bun/Creatinine Ratio 50.3 (12.0-20.0); C-REACTIVE PROTEIN, EXT RANGE 7.11 mg/dL (0.000-0.300); Calcium, Blood 8.1 mg/dL (8.5-10.1); Creatinine, Blood 0.58 mg/dL (0.40-1.00); Globulin, Blood 4.3 g/dL (2.2-4.0); Potassium, Blood 4.6 mmol/L (3.5-5.5); Total Protein, Blood 6.2 g/dL (6.4-8.2)
--- NOTE | 2023-07-06 06:47 | NUR ---
SHIFT SUMMARY PT ALERT AND ORIENTED X 4, COOPERATIVE WITH CARE AND ABLE TO MAKE NEEDS KNOWN. PERRMARGARET. PT ON RA AND MAINTAINING 02 SATURATION ABOVE 92%, NO COMPLAINTS OF SOB THIS SHIFT. NO COMPLAINTS OF CHEST PAIN/PRESSURE FROM PT THIS SHIFT. VITALS STABLE. PT IS INCONTINENT OR BLADDER AND BOWELS. PUREWICK AND BRIEF IN PLACE AND CHANGED PRN, YELLOW URINE OUTPUT. RECTAL TUBE IN PLACE DRAINING STOOL WITH GRAVITY. PTS POWERGLIDE TO RIGHT UPPER ARM PATENT BUT DOES NOT DRAW BLOOD. PT HAS CLINIMIX RUNNINT PER EMAR. SHE WAS ABLE TO GET SOME SLEEP THIS SHIFT. Q2 TURNS. SHE IS CURRENTLY RESTING IN BED WITH CALL LIGHT WITHIN REACH.
[2023-07-06 07:43] VITALS: BP 124/57
[2023-07-06 16:02] VITALS: BP 107/54
--- NOTE | 2023-07-06 18:09 | NUR ---
SHIFT SUMMARY; ASSUMED CARE AT 0700. A/A/OX4. SAUNDRA LIFT TO RECLINER CHAIR IN AM, TOLERATED WELL. WORKED WITH PT. RECTAL TUBE IN PLACE DRAINING TO GRAVITY, STOOL LIQUID AND BROWN. MOVES ALL 4 EXTREMETIES, Q2 TURNS, ASSISTS WITH TURNING. PURWICK IN PLACE. SEE CHART PHOTOS FOR SKIN ASSESMENT. POWDER TO FOLDS DURING SHIFT. MEDICAL STATUS, PLANNING FOR DC TO SNIFF. WILL CONTINUE TO MONITOR UNTIL CHANGE OF SHIFT.
[2023-07-06 20:08] VITALS: BP 98/58
--- NOTE | 2023-07-06 21:15 | NUR ---
PT IS ALERT AND ORIENTED X 4, COOPERATIVE WITH CARE AND ABLE TO MAKE NEEDS KNOWN. LINA. SHE IS ON RA AND MAINTAINING 02 SATURATION ABOVE 92%, SHE DENIES SOB. PER DAY SHIFT PT WORKED WITH PT AND OT TODAY AND HER BLE ARE WEAK. DURING REPOSITIONING I EDUCATED PT ON IMPORTANCE OF HER TRYING TO MOVE HERSELF MUCH POSSIBLE. THIS RN AND UTILITY OPERATOR LET HER MOVE MUCH SHE COULD FIRST, THEN WE ASSISTED WITH POSITION CHANGE NEEDED. SHE DENIES CHEST PAIN/PRESSURE AT THIS TIME AND BP IS STABLE. PW IN PLACE AND DRAINING YELLOW/ORANGE URINE, BRIEF IN PLACE AND CHANGED PRN. RECTAL TUBE IN PLACE DRAINING LOOSE STOOL WITH GRAVITY. PER DAY SHIFT REPORT, OF NOW PLAN IS FOR DAY SHIFT TMR TO TEST STOOL FOR CDIFF IF STOOLS DO NOT BECOME MORE FORMED TONIGHT. PT DENIES PAIN SO FAR THIS SHIFT. POWERGLIDE TO FRANCINE AND IV TO L HAND PATENT/FLUSHED/SALINE LOCKED. POWERGLIDE DOES NOT DRAW BACK BLOOD. PT CURRENTLY IN BED TALKING ON THE PHONE. CALL LIGHT WITHIN REACH.
[2023-07-07 01:31] VITALS: BP 108/60
[2023-07-07 04:08] LABS: BASOPHILS ABSOLUTE AUTO 0.07 K/mm3 (0.00-0.23); BASOPHILS PERCENT AUTO 0 % (0-2); EOSINOPHILS ABSOLUTE AUTO 0.34 K/mm3 (0.00-0.68); EOSINOPHILS PERCENT AUTO 2 % (0-6); Hematocrit 32.5 % (33.0-51.0); Hemoglobin 10.7 g/dL (11.5-16.0); IMMATURE GRAN PERCENT AUTO 3 % (0-1); LYMPHOCYTES ABSOLUTE AUTO 2.74 K/mm3 (0.84-5.20); LYMPHOCYTES PERCENT AUTO 12 % (21-46); MONOCYTES ABSOLUTE AUTO 1.56 K/mm3 (0.16-1.47); MONOCYTES PERCENT AUTO 7 % (4-13); Mean Corpuscular HGB 29.5 pg (26.0-34.0); Mean Corpuscular HGB Conc 32.9 g/dL (31.5-36.5); Mean Corpuscular Volume 90 fL (80-100); Mean Platelet Volume 10.8 fL (9.1-12.4); NEUTROPHILS ABSOLUTE AUTO 16.77 K/mm3 (1.96-9.15); NEUTROPHILS PERCENT AUTO 76 % (41-73); NRBC ABSOLUTE 0.02 K/mm3 (0.00-0.02); NRBC Auto 0.1 /100 WBC (0.0-0.2); Platelet Count 445 K/mm3 (150-400); RDW Coefficient Variation 18.4 % (11.7-14.2); RDW Standard Deviation 53.7 fL (35.1-46.3); Red Blood Cell Count 3.63 M/mm3 (3.80-5.20); White Blood Cell Count 22.08 K/mm3 (4.00-11.30)
[2023-07-07 05:04] LABS: C-REACTIVE PROTEIN, EXT RANGE 11.6 mg/dL (0.000-0.300)
[2023-07-07 05:05] LABS: Albumin, Blood 1.8 g/dL (3.4-5.0); Albumin/Globulin Ratio 0.4 (0.8-1.8); Bilirubin, Total 0.5 mg/dL (0.1-1.0); Bun/Creatinine Ratio 40.9 (12.0-20.0); Calcium, Blood 8.1 mg/dL (8.5-10.1); Creatinine, Blood 0.66 mg/dL (0.40-1.00); Globulin, Blood 4.3 g/dL (2.2-4.0); Total Protein, Blood 6.1 g/dL (6.4-8.2)
--- NOTE | 2023-07-07 05:51 | NUR ---
NO ACUTE CHANGES, SEE PREVIOUS NOTE. STOOL FROM RECTAL TUBE IS STARTING TO BECOME MORE FORMED.
--- NOTE | 2023-07-07 06:18 | NUR ---
WHILE ENTERING PT'S 0 VITALS GENERATOR TEST SHUT COMPUTER DOWN AND I GOT LOCKED OUT OF PT VITALS. TEMP VIA TEMPORAL WAS 97.4, RR 16, MANUAL BP VIA L FOREARM 110/58 WITH MAP OF 75, MAP VIA FORMULA D+1/3(S-D). O2 SATURATION 98 ON RA VIA MONITOR. HR 68 VIA MONITOR.
--- NOTE | 2023-07-07 07:26 | NUR ---
REPORT GIVEN TO MEDICAL FLOOR RN TO ASSUME CARE FOR IN HOUSE TRANSFER.
[2023-07-07 09:58] VITALS: BP 123/60
[2023-07-07 14:34] VITALS: BP 105/45
--- NOTE | 2023-07-07 17:17 | NUR ---
TRANSFER FROM [facility] AT 0744- PT CAME IN STABLE CONDITION. 2 RN SKIN CHECK PERFORMED WITH ALL CASSIDY. PT HAS BRUISING/ POSSIBLE CELLULITIS ON R FA, TALISHA AREA/FOLDS RED FROM MOISTURE-POWDER APPLIED, PT HAS THRUSH IN MOUTH-NYSTATIN ALREADY ORDERED, AND SMALL RIGHT THIGH ABRASION/BLISTER NOTED-SCABBED OVER.
--- NOTE | 2023-07-07 17:25 | NUR ---
SUMMARY- PT PLACED IN LIFT TODAY FOR RECLINER AND BSC. PAIN WELL CONTROLLED WITH EMAR MEDS. AAOX4. RECTAL TUBE AND PURE WICK REMOVED IMMEDIATELY UPON ARRIVAL TO MEDICAL FLOOR. PT HAS HAD 0 EPISODES OF BM ALL SHIFT. PT HAS BEEN CONTINENT OF URINE USING THE BSC OR BED DOYLE.
[2023-07-07 20:31] VITALS: BP 102/55
[2023-07-08 03:04] VITALS: BP 104/54
--- NOTE | 2023-07-08 04:58 | NUR ---
SHIFT SUMMARY. PATIENT IS A 68 YEAR OLD FEMALE ADMITTED WITH SEPSIS. PATIENT IS AOX4. PATIENT IS ON RA. PATIENT IS LIFT TO THE BEDSIDE COMMODE/RECLINER. PATIENT WAS SEEN BY PT DURING DAY SHIFT YESTERDAY PER PATIENT THEY GAVE HER SOME EXERCISES TO HELP STRENGTHEN HER LEGS-AT THIS POINT PATIENT HAS NOT DONE THE EXERCISES, BUT STATES SHE IS WORKING ON THEM. PATIENT IS PLEASANT AND COOPERATIVE WITH CARE. PATIENT CALLS APPROPRIATELY AND IS ABLE TO MAKE HER NEEDS KNOWN. PATIENT ASSISTS WITH ROLLING MUCH SHE IS ABLE TO. NO EVENTS THIS SHIFT. BED IS LOCKED IN THE LOWEST POSITION WITH CALL LIGHT IN REACH. NO S/S OF DISTRESS NOTED. CARE ONGOING.
[2023-07-08 05:28] LABS: BASOPHILS ABSOLUTE AUTO 0.05 K/mm3 (0.00-0.23); BASOPHILS PERCENT AUTO 0 % (0-2); EOSINOPHILS ABSOLUTE AUTO 0.32 K/mm3 (0.00-0.68); EOSINOPHILS PERCENT AUTO 2 % (0-6); Hematocrit 30.2 % (33.0-51.0); Hemoglobin 9.8 g/dL (11.5-16.0); IMMATURE GRAN ABSOLUTE AUTO 0.22 K/mm3 (0.00-0.10); IMMATURE GRAN PERCENT AUTO 1 % (0-1); LYMPHOCYTES ABSOLUTE AUTO 2.13 K/mm3 (0.84-5.20); LYMPHOCYTES PERCENT AUTO 13 % (21-46); MONOCYTES ABSOLUTE AUTO 1.59 K/mm3 (0.16-1.47); MONOCYTES PERCENT AUTO 9 % (4-13); Mean Corpuscular HGB 29.4 pg (26.0-34.0); Mean Corpuscular HGB Conc 32.5 g/dL (31.5-36.5); Mean Corpuscular Volume 91 fL (80-100); Mean Platelet Volume 10.1 fL (9.1-12.4); NEUTROPHILS ABSOLUTE AUTO 12.79 K/mm3 (1.96-9.15); NEUTROPHILS PERCENT AUTO 75 % (41-73); Platelet Count 507 K/mm3 (150-400); RDW Coefficient Variation 18.5 % (11.7-14.2); RDW Standard Deviation 56.2 fL (35.1-46.3); Red Blood Cell Count 3.33 M/mm3 (3.80-5.20)
[2023-07-08 06:28] LABS: Albumin, Blood 1.8 g/dL (3.4-5.0); Albumin/Globulin Ratio 0.4 (0.8-1.8); Bilirubin, Total 0.6 mg/dL (0.1-1.0); C-REACTIVE PROTEIN, EXT RANGE 14.1 mg/dL (0.000-0.300); Calcium, Blood 8.7 mg/dL (8.5-10.1); Creatinine, Blood 0.7 mg/dL (0.40-1.00); Globulin, Blood 4.3 g/dL (2.2-4.0); Total Protein, Blood 6.1 g/dL (6.4-8.2)
[2023-07-08 07:55] VITALS: BP 105/55
[2023-07-08 14:55] VITALS: BP 120/54
[2023-07-08] MEDS ORDERED: PANT40 PO (17:14)
[2023-07-08] MEDS ORDERED: FAMO40 PO (17:14)
--- NOTE | 2023-07-08 18:18 | NUR ---
SHIFT SUMMARY- PT IS A/O, PLESANT AND COOPERATIVE. SHE RECIEVED A SHOWER THIS SHIFT. SHE IS A LIFT. ATTEMPTEND TO USE THE SIT TO STAND BUT SHE WAS UNABLE TO. SHE IS EATING AND DRINKING WELL. HER BED IS IN THE LOW POSIOTN AND CALL LIGHT IS WITHIN REACH.
[2023-07-08 19:15] VITALS: BP 113/52
[2023-07-09 02:43] VITALS: BP 119/61
[2023-07-09 05:16] LABS: BASOPHILS ABSOLUTE AUTO 0.07 K/mm3 (0.00-0.23); BASOPHILS PERCENT AUTO 1 % (0-2); EOSINOPHILS ABSOLUTE AUTO 0.35 K/mm3 (0.00-0.68); EOSINOPHILS PERCENT AUTO 2 % (0-6); Hematocrit 30.4 % (33.0-51.0); Hemoglobin 9.6 g/dL (11.5-16.0); IMMATURE GRAN ABSOLUTE AUTO 0.15 K/mm3 (0.00-0.10); IMMATURE GRAN PERCENT AUTO 1 % (0-1); LYMPHOCYTES ABSOLUTE AUTO 1.85 K/mm3 (0.84-5.20); LYMPHOCYTES PERCENT AUTO 13 % (21-46); MONOCYTES ABSOLUTE AUTO 1.63 K/mm3 (0.16-1.47); MONOCYTES PERCENT AUTO 11 % (4-13); Mean Corpuscular HGB 28.8 pg (26.0-34.0); Mean Corpuscular HGB Conc 31.6 g/dL (31.5-36.5); Mean Corpuscular Volume 91 fL (80-100); Mean Platelet Volume 9.7 fL (9.1-12.4); NEUTROPHILS PERCENT AUTO 72 % (41-73); Platelet Count 633 K/mm3 (150-400); RDW Coefficient Variation 18.2 % (11.7-14.2); RDW Standard Deviation 57.4 fL (35.1-46.3); Red Blood Cell Count 3.33 M/mm3 (3.80-5.20); White Blood Cell Count 14.35 K/mm3 (4.00-11.30)
--- NOTE | 2023-07-09 05:29 | NUR ---
REPORT RECEIVED VERIFED A/O VERY PLEASENT AND CALLS APPROPRIATLY ASSESSMENT WNL POWERGLIDE AND IV FLUSHING WELL, PT HAS NO C/O PAIN NO DISTRESS, PT SLEEPING QUIETLY THROUGHOUT THE NIGHT.
[2023-07-09 05:52] LABS: Albumin, Blood 1.9 g/dL (3.4-5.0); Albumin/Globulin Ratio 0.4 (0.8-1.8); Bilirubin, Total 0.5 mg/dL (0.1-1.0); Bun/Creatinine Ratio 35.6 (12.0-20.0); C-REACTIVE PROTEIN, EXT RANGE 14.1 mg/dL (0.000-0.300); Calcium, Blood 8.7 mg/dL (8.5-10.1); Creatinine, Blood 0.73 mg/dL (0.40-1.00); Globulin, Blood 4.5 g/dL (2.2-4.0); Potassium, Blood 4.5 mmol/L (3.5-5.5); Total Protein, Blood 6.4 g/dL (6.4-8.2)
[2023-07-09 08:27] VITALS: BP 113/62
--- NOTE | 2023-07-09 18:47 | NUR ---
SHIFT SUMMARY PT AOX4, BR/LIFT. PT ATTEMPTED TO GET UP WITH PT, GOOD ATTEMPT BUT UNSUCCESSFUL. MEDICATED FOR PAIN PER THE EMAR. NO OTHER COMPLAINTS. PG PATENT AND FLUSHING. CALL LIGHT WITHIN REACH, BED IN THE LOWEST POSITION. WILL REPORT TO ONCOMING NURSE.
[2023-07-09 19:14] VITALS: BP 108/50
[2023-07-10 02:43] VITALS: BP 126/64
[2023-07-10 06:08] LABS: BASOPHILS ABSOLUTE AUTO 0.08 K/mm3 (0.00-0.23); BASOPHILS PERCENT AUTO 1 % (0-2); EOSINOPHILS ABSOLUTE AUTO 0.36 K/mm3 (0.00-0.68); EOSINOPHILS PERCENT AUTO 3 % (0-6); Hematocrit 29.1 % (33.0-51.0); Hemoglobin 9.2 g/dL (11.5-16.0); IMMATURE GRAN ABSOLUTE AUTO 0.09 K/mm3 (0.00-0.10); IMMATURE GRAN PERCENT AUTO 1 % (0-1); LYMPHOCYTES PERCENT AUTO 18 % (21-46); MONOCYTES ABSOLUTE AUTO 1.57 K/mm3 (0.16-1.47); MONOCYTES PERCENT AUTO 15 % (4-13); Mean Corpuscular HGB 29.1 pg (26.0-34.0); Mean Corpuscular HGB Conc 31.6 g/dL (31.5-36.5); Mean Corpuscular Volume 92 fL (80-100); Mean Platelet Volume 9.7 fL (9.1-12.4); NEUTROPHILS ABSOLUTE AUTO 6.51 K/mm3 (1.96-9.15); NEUTROPHILS PERCENT AUTO 62 % (41-73); Platelet Count 638 K/mm3 (150-400); RDW Coefficient Variation 17.8 % (11.7-14.2); RDW Standard Deviation 57.9 fL (35.1-46.3); Red Blood Cell Count 3.16 M/mm3 (3.80-5.20); White Blood Cell Count 10.51 K/mm3 (4.00-11.30)
--- NOTE | 2023-07-10 06:42 | NUR ---
ROSALIA DID VERY WELL THROUGH THE NIGHT, USED THE BED DOYLE TWICE AND SLEPT THE REST OF THE TIME. PT HAS CALLED APPROPRIATLY AND HAS HASD NO ISSUES . WILL CONT TO MONITOR
[2023-07-10 07:10] LABS: Albumin, Blood 1.9 g/dL (3.4-5.0); Albumin/Globulin Ratio 0.4 (0.8-1.8); Bilirubin, Total 0.4 mg/dL (0.1-1.0); Bun/Creatinine Ratio 36.2 (12.0-20.0); C-REACTIVE PROTEIN, EXT RANGE 11.1 mg/dL (0.000-0.300); Calcium, Blood 8.8 mg/dL (8.5-10.1); Creatinine, Blood 0.75 mg/dL (0.40-1.00); Globulin, Blood 4.7 g/dL (2.2-4.0); Potassium, Blood 4.8 mmol/L (3.5-5.5); Total Protein, Blood 6.6 g/dL (6.4-8.2)
[2023-07-10 07:29] VITALS: BP 135/50
[2023-07-10 14:04] LABS: Influenza A, PCR NEGATIVE (NEGATIVE); Influenza B, PCR NEGATIVE (NEGATIVE); Resp Syncytial Virus, PCR NEGATIVE (NEGATIVE); SARS-Cov-2 (COVID-19) PCR, MMC NEGATIVE (NEGATIVE)
[2023-07-10] MEDS ORDERED: BISA10S PR (15:04)
[2023-07-10] MEDS ORDERED: DOCU100 PO (15:05)
[2023-07-10] MEDS ORDERED: HYDCHL12.5 PO (15:06)
[2023-07-10] MEDS ORDERED: FURO20 PO (15:06)
[2023-07-10] MEDS ORDERED: DULCOLAX400 MG/5 M PO (15:07)
[2023-07-10] MEDS ORDERED: Prinivil10 MG PO (15:07)
[2023-07-10] MEDS ORDERED: MICO100S TOP (15:08)
[2023-07-10] MEDS ORDERED: [UNRECOGNIZED DRUG - CODE] PO (15:12)
[2023-07-10] MEDS ORDERED: MULTIVITAMIN WITH MI PO (15:12)
[2023-07-10] MEDS ORDERED: MIRALAX17 GM PO (15:13)
[2023-07-10] MEDS ORDERED: Percocet 5-3251 EACH PO (15:13)
[2023-07-10] MEDS ORDERED: B-1100 M1 PO (15:14)
[2023-07-10] MEDS ORDERED: IBUP600 PO (15:14)
[2023-07-10] MEDS ORDERED: AMOCLA875 PO (15:14)
--- NOTE | 2023-07-10 17:38 | NUR ---
DISCHARGE NOTE PT DISCHARGED TO [facility], REPORT GIVEN TO A NURSE AT THE FACILITY. PG AND IV REMOVED. TRANSPORT PACKET GIVEN TO THE PRISON LIBRARIAN. HARD SCRIPT IN THE PACKET.
== END 2023-07-10 17:21 | disposition hospice, inpatient (51) | DRG 871 ==
LOC: ER 17:44 → ICUE 21:02 → PCU 07-04 18:58 → MEDS 07-07 07:44 → ENPENDDIS 07-10 13:02 → MEDS 07-10 17:21
PROVIDERS: Emergency Medicine; Family Medicine; Hospitalist; Internal Medicine; Nurse Practitioner Acute Care; ADMIT Internal Medicine
PROC: 0T9B70Z Drainage of Bladder with Drainage Device, Via Natural or Artificial Opening (ICD-10-PCS; principal; 2023-06-27)
PROC: 3E03329 Introduction of Other Anti-infective into Peripheral Vein, Percutaneous Approach (ICD-10-PCS; 2023-06-27)
PROC: 3E033XZ Introduction of Vasopressor into Peripheral Vein, Percutaneous Approach (ICD-10-PCS; 2023-06-27)
PROC: HZ2ZZZZ Detoxification Services for Substance Abuse Treatment (ICD-10-PCS; 2023-06-27)
PROC: 009U3ZX Drainage of Spinal Canal, Percutaneous Approach, Diagnostic (ICD-10-PCS; 2023-06-27)
PROC: 0D9670Z Drainage of Stomach with Drainage Device, Via Natural or Artificial Opening (ICD-10-PCS; 2023-06-27)
DX: A40.1 Sepsis due to streptococcus, group B (principal); G93.41 Metabolic encephalopathy; J18.9 Pneumonia, unspecified organism; J96.01 Acute respiratory failure with hypoxia; R65.21 Severe sepsis with septic shock; N17.9 Acute kidney failure, unspecified; Z68.43 Body mass index [BMI] 50.0-59.9, adult; L03.115 Cellulitis of right lower limb; L03.113 Cellulitis of right upper limb; E44.0 Moderate protein-calorie malnutrition; E87.0 Hyperosmolality and hypernatremia; E86.0 Dehydration; E66.01 Morbid (severe) obesity due to excess calories; Z96.653 Presence of artificial knee joint, bilateral; E78.5 Hyperlipidemia, unspecified; E87.6 Hypokalemia; K21.9 Gastro-esophageal reflux disease without esophagitis; I12.9 Hypertensive chronic kidney disease with stage 1 through stage 4 chronic kidney disease, or unspecified chronic kidney disease; N18.30 Chronic kidney disease, stage 3 unspecified; M54.50 Low back pain, unspecified; D63.1 Anemia in chronic kidney disease; G89.4 Chronic pain syndrome; F32.9 Major depressive disorder, single episode, unspecified; D69.6 Thrombocytopenia, unspecified; M17.0 Bilateral primary osteoarthritis of knee; R13.10 Dysphagia, unspecified; K74.60 Unspecified cirrhosis of liver; Z11.52 Encounter for screening for COVID-19; Z88.2 Allergy status to sulfonamides; Z88.5 Allergy status to narcotic agent; Z88.8 Allergy status to other drugs, medicaments and biological substances; Z79.811 Long term (current) use of aromatase inhibitors; Z79.899 Other long term (current) drug therapy; Z90.710 Acquired absence of both cervix and uterus; Z98.890 Other specified postprocedural states; Z90.49 Acquired absence of other specified parts of digestive tract
CPT/HCPCS: 0241U; 36415; 51702; 70450; 71045; 72129; 72132; 73201; 74176; 76705; 76882; 80048; 80053; 80202; 81001; 82140; 82330; 82947; 82977; 83605; 83735; 83880; 83883; 84100; 84145; 84450; 84460; 84478; 84484; 84520; 85025; 85610; 85651; 85730; 86015; 86038; 86039; 86140; 86225; 86235; 86704; 86708; 86803; 87040; 87086; 87147; 87340; 87449; 92526; 92610; 93005; 93010; 93306; 93971; 94760; 94762; 96365-59; 96366-59; 96367-59; 97110; 97162; 97530; 99285-25; A9270; C9113; J0133; J0456; J0692; J0696; J1100; J1170; J1644; J1650; J1885; J1940; J2060; J3370; J3480; J7030; J7050; J7060; J7070; J7120; P9047; Q9967

== ENCOUNTER 2023-07-28 01:55 | Emergency (ER) | payer MEDICARE, OTHER ==
[~2023-07-28] VITALS: Ht 172.7 cm; Wt 129.3 kg
[~2023-07-28 01:55] MED LIST changes: +AMOCLA875 PO; +B-1100 M1 PO; +BISA10S PR; +DOCU100 PO; +DULCOLAX400 MG/5 M PO; +FURO20 PO; +HYDCHL12.5 PO; +IBUP600 PO; +MICO100S TOP; +MIRALAX17 GM PO; +MULTIVITAMIN WITH MI PO; +PANT40 PO; +Percocet 5-3251 EACH PO; +Prinivil10 MG PO; +[UNRECOGNIZED DRUG - CODE] PO
[2023-07-28] MEDS ORDERED: MethylPREDNISolone Sod Succ 125 MG Vial IV ONE (02:10)
[2023-07-28] MEDS ORDERED: EPINEPhrine HCl 1 MG/ML 1ML Amp IM ONE (02:10)
[2023-07-28] MEDS ORDERED: Tranexamic Acid 100 ML IV ONE (02:15)
[2023-07-28] MEDS ORDERED: Famotidine 10 MG/ML 2ML Vial IV ONE (02:15)
[2023-07-28] MEDS ORDERED: DiphenhydrAMINE HCl 50 MG/ML 1ML Vial IV ONE (02:15)
[2023-07-28] MEDS ORDERED: EpiNEPhrine 1 MG/1 ML 1ML Vial IM ONE (02:20)
[2023-07-28 06:30] VITALS: BP 144/44
== END 2023-07-28 06:33 | disposition home or self-care (01) ==
LOC: ER 01:55
DX: T78.3XXA Angioneurotic edema, initial encounter (principal); I10 Essential (primary) hypertension; Z88.2 Allergy status to sulfonamides; Z88.5 Allergy status to narcotic agent; Z88.6 Allergy status to analgesic agent; Z88.8 Allergy status to other drugs, medicaments and biological substances; Z79.899 Other long term (current) drug therapy
CPT/HCPCS: 96372-59; 96374; 96375; 99285-25; J0171; J1200; J2930

== ENCOUNTER → 2024-09-20 | Outpatient (CLI) | payer MEDICARE, OTHER | LOC: LAB 16:27 → LAB SHORT 16:27 | DX: R30.0 Dysuria (principal) | CPT/HCPCS: 87077; 87086; 87186 ==